=== PATIENT | male | born 1995 | race Caucasian/White ===

== ENCOUNTER 2018-05-05 06:57 | Emergency (ER) | payer SELFPAY ==
[~2018-05-05] VITALS: Ht 182.9 cm; Wt 77.1 kg
[2018-05-05 07:07] VITALS: BP 133/85
[2018-05-05] MEDS ORDERED: PRED50TA PO (07:21)
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
== END 2018-05-05 07:33 | disposition home or self-care (01) ==
LOC: ER 06:57
DX: M54.5 Low back pain (principal); M54.6 Pain in thoracic spine; G89.11 Acute pain due to trauma; V89.2XXA Person injured in unspecified motor-vehicle accident, traffic, initial encounter; Y92.488 Other paved roadways as the place of occurrence of the external cause; Y93.89 Activity, other specified; Y99.8 Other external cause status
CPT/HCPCS: 99283